=== PATIENT | male | born 1970 | race Two or more races ===

== ENCOUNTER 2018-12-27 10:36 | Emergency (ER) | payer MEDICAID ==
--- NOTE | 2018-12-27 11:05 | ED Physician Chart ---
ED Chief Complaint/HPI - Patient Information Date Seen:: 12/27/18 Time Seen:: 10:50 Chief Complaint:: chest pain History of Present Illness:: Patient developed pleuritic left superior chest pain 2 days ago (pain increased by deep breathing). Patient's had a minimal nonproductive cough. He coughs about once per day. No chest wall trauma. Allergies:: Allergies Allergy/AdvReac Type Severity Reaction Status Date / Time No Known Allergies Allergy Verified 12/27/18 10:58 Vitals:: Vital Signs - 8 hr 12/27/18 10:40 Temp 97.8 F HR 76 RR 18 BP 122/79 O2 Sat % 95 Historian:: Patient Review:: Nurse's Note Reviewed ED Review of Systems - Review of Systems General/Constitutional: No fever, No chills Skin: No skin lesions Head: No headache Eyes: No loss of vision ENT: No earache Neck: No neck pain Cardio Vascular: Chest pain Pulmonary: No SOB, Cough GI: No nausea, No vomiting, No diarrhea G/U: No dysuria Musculoskeletal: No bone or joint pain Endocrine: No polyuria, No polydipsia Psychiatric: No prior psych history, No depression, No anxiety Hematopoietic: No bruising Allergic/Immuno: No urticaria Neurological: No syncope, No focal symptoms, No weakness ED Past Medical History - Past Medical History Past Medical History: No significant medical hx Family History: Diabetes Melitus, HTN, Other (both parents have high blood pressure and diabetes) Social History: Non Smoker, Illicit Drug Use (patient drinks 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 ounces of beer a day and occasionally snorts crystal meth; last used crystal meth 5 days ago) Surgical History: None Psychiatricy History: None Medication: None Family Medical History - Family Member Father Age: 76 Ethnicity: Living Status: Still Living Hx Family Cancer: Yes (AUNT) Hx Family Coronary Artery Disease: No Hx Family Congestive Heart Failure: No Hx Family Hypertension: Yes Hx Family Stroke: No Hx Family Diabetes: Yes Hx Family Seizures: No Hx Family Dementia: No Hx Family AIDS: No Hx Family HIV: No Hx Family COPD: No Hx Family Hepatitis: No Hx Family Psychiatric Problems: No Hx Family Tuberculosis: No ED Physical Exam - Physical Examination General/Constitutional: Well-developed, well-nourished, Alert Head: Atraumatic Eyes: Lids, conjuctiva normal, PERRL Skin: Nl inspection, No rash ENMT: External ears, nose nl, TM canals nl, Nasal exam nl, Lips, teeth, gums nl , Oropharynx nl Neck: No nuchal rigidity Respiratory: Nl effort/Exclusion, Clear to Auscultation, No Wheeze/Rhonchi/Rales Cardio Vascular: RRR, No murmur, gallop, rubs, NL S1 S2 GI: No tenderness/rebounding/guarding, No organomegaly, No hernia, Normal BS's : No CVA tenderness Other Extremities comments:: 1/4 pretibial pitting edema Neuro/Psych: Alert/oriented, No focal deficits Misc: Normal back ED Labs/Radiology/EKG Results - Lab Results Results: Laboratory Results Glucose 147 mg/dL (70-105) H 12/27/18 10:58 Troponin I 0.01 ng/mL (0.01-0.05) 12/27/18 10:58 - Radiology Results Results: Chest x-ray normal - EKG Interpretations Rate & Rhythm: normal sinus rhythm with a rate of 75 [place]: normal Comments:: About [address] elevation in leads V2 to V6 ED Assessment - Assessment General Assessment: Patient's troponin is 0.01. Neither the history, physical exam nor the lab tests suggest a cardiac etiology of the patient's chest pain. Patient has easy unlabored respirations and his pulse ox is 100% on room air so a pulmonary embolus seems extremely unlikely. It is possible that the crystal meth has been irritating his lungs so we suggested to him that he stop smoking it. We also told the patient he needs a fasting blood sugar ordered by a follow-up primary care doctor as he probably has diabetes since his blood sugar is 147 and both parents have diabetes. ED Septic Shock - . Is Septic Shock (SBP<90, OR Lactate>4 mmol\L) present?: No - <6hrs of presentation: Vital Signs: Vital Signs - 8 hr 12/27/18 10:40 Temp 97.8 F HR 76 RR 18 BP 122/79 O2 Sat % 95 ED Reassessment (Disposition) - Reassessment Reassessment Condition:: Unchanged - Diagnosis Diagnosis:: Atypical chest pain; hyperglycemia; probable diabetes - Aftercare/Follow up Instructions Aftercare/Follow-Up Instructions:: Refer to Discharge Instructions - Patient Disposition Discharge/Transfer:: Home Condition at Disposition:: Stable, Unchanged
--- NOTE | 2018-12-27 12:41 | Diagnostic Imaging Report ---
Chest x-ray single view History: Chest Comparison: None The heart size is normal. No focal pulmonary parenchymal processes. No hilar or mediastinal abnormalities. Impression: No acute abnormalities
== END 2018-12-27 12:04 | disposition home or self-care (01) ==
LOC: ER 10:36
DX: R07.89 Other chest pain (principal); R73.9 Hyperglycemia, unspecified
CPT/HCPCS: 36415-UA; 71045-TC; 82947-TC; 84484-TC; 93005